=== PATIENT | male | born 1970 | race Caucasian/White ===

== ENCOUNTER 2016-10-19 11:09 | Inpatient (IN) | payer OTHER ==
[~2016-10-19] VITALS: Ht 175.3 cm; Wt 70.9 kg
[~2016-10-19 11:09] MED LIST: ACID CONTROL150 MG PO; AMBIEN10 MG PO; AMLODIPINE BESYL5 MG PO; ANTIVERT25 MG PO; APRESOLIN50 MG PO; APRESOLINE10 MG PO; AQUAPHOR OINTM105 GM TP; ASPIRIN EC325 MG PO; ASPIRIN325 MG PO; BUMETANIDE1 MG PO; CATAPRES0.1 MG PO; CHOLESTYRAMINE P4 GM PO; CLONIDINE HCL0.2 MG PO; COMBIVENT200 INHALA; COMBIVENT200 INHALA IH; COZAAR50 MG PO; Chronulac,Cephulac,E PO; DIGITEK125 MC1 PO; EPOGEN,PRO2000 UNITS IV; FLAGYL500 MG PO; FLORASTOR250 MG PO; FULL SPECTRUM0.8 MG PO; FUROSEMIDE20 MG PO; FUROSEMIDE80 MG; FUROSEMIDE80 MG PO; GABAPENTIN300 MG PO; GLYBURIDE5 MG PO; HYDRALAZINE HCL25 MG PO; IMDUR30 MG PO; IMDUR60 MG PO; KEFLEX500 MG PO; LANOXIN,DIGI0.125 MG PO; LANTUS 10100 UNITS/; LANTUS 3 M100 UNITS/ SC; LANTUS100 UNIT/1 SQ; LIDODERM 5% P1 PATCH TD; LIDOPRIL 2.5%-1 EACH TP; LITE COAT ASPI325 M1 PO; LOPRESSOR25 MG PO; LOPRESSOR50 MG PO; LOSARTAN POTASS50 MG PO; LYRICA25 MG PO; LYRICA75 MG PO; MAGOX 400400 MG PO; MECLIZINE HCL25 MG PO; METOPROLOL TART50 MG PO; NEPHRO-VITE,1 TABLET PO; NOVOLOG PE100 UNITS/ SC; NOVOLOG100 UNIT/2 SQ; OXYCODONE HCL10 MG PO; OXYCODONE HCL15 MG PO; OxyCODONE PO; PERCOCET 5/31 TABLET PO; PRAVACHOL40 MG PO; PROVENTIL,2.5 MG/3 M IH; RANITIDINE HCL150 MG PO; RENVELA800 MG PO; ROXICODONE15 MG PO; SANTYL30 GM TP; SENSIPAR30 MG PO; SENSIPAR60 MG PO; VANCOCIN 250 M250 MG PO; VANCOCIN HCL125 MG PO; VENTOLIN HFA18 GM; VENTOLIN HFA18 GM IH; VITAMIN D5000 INTUN; VITAMIN D5000 INTUN PO; VITAMIN D5000 UNIT PO; Vitamin D, Drisdol PO; ZANTAC150 M1 PO; ZANTAC150 MG; ZANTAC150 MG PO; ZAROXOLYN,DIULO5 MG PO; ZESTRIL,PRINIVI10 MG PO; ZESTRIL,PRINIVI40 MG PO; ZESTRIL40 M1 PO; Zocor PO; [UNRECOGNIZED DRUG - OTHER]; [UNRECOGNIZED DRUG - OTHER] PO
[2016-10-19 12:18] LABS: INTERNAL CONTROL VALID? YES
[2016-10-19 12:25] LABS: HEMATOCRIT 26.3 % (38.0-50.0); MCH 26.8 PG (29.0-34.0); MCHC 31.6 G/DL (30.0-36.0); MCV 84.8 FL (86-99); MEAN PLAT.VOLUME 10.8 uM^3 (9.0-12.4); PLATELET COUNT 176 K/uL (156-360); RBC DIS.WIDTH-CV 17.5 % (11.8-14.6); RBC DIS.WIDTH-SD 53.2 % (39-53); WHITE BLOOD COUNT 15.8 K/uL (4.1-10.2)
[2016-10-19 12:33] LABS: CHLORIDE 93 mEq/L (99-109); POTASSIUM 3.6 mEq/L (3.7-5.4); SODIUM 130 mEq/L (136-147)
[2016-10-19 12:35] LABS: GLUCOSE 113 mg/dL (70-99)
[2016-10-19 12:36] LABS: ANION GAP 17 MEQ/L (2-14)
[2016-10-19 12:37] LABS: TOTAL BILIRUBIN 1.1 mg/dL (0.0-1.0)
[2016-10-19 12:38] LABS: ALKALINE PHOSPHATASE 102 IU/L (3-129)
[2016-10-19 12:39] LABS: GFR ESTIMATE (CALCULATED) 6 mL/min/
[2016-10-19 12:40] LABS: UREA NITROGEN (BUN) 46 mg/dL (9-23)
[2016-10-19 12:41] LABS: C DIFF TOXIN POSITIVE (NEGATIVE)
[2016-10-19 12:42] LABS: LIPASE 9 U/L (1.0-51.0)
[2016-10-19 12:58] LABS: PROBE CHECK PASS
[2016-10-19 14:43] LABS: EOSINOPHIL (%) 0.1 % (0-5); IMMATURE GRANULOCYTE (%) 0.3 % (0.0-0.7); INSTRUMENT ABS NEUTROPHIL CT 13.4 K/uL; MONOCYTE (%) 7.7 % (3-12); MONOCYTE COUNT 1.2 K/uL (0-0.8); NEUTROPHIL (%) 85.1 % (45-76); NEUTROPHIL COUNT 13.4 K/uL (1.8-6.4)
[2016-10-19] MEDS ORDERED: RENVELA800 MG PO (15:36)
[2016-10-19] MEDS ORDERED: HYDROPHOR OINT454 GM TP (15:39)
[2016-10-19] MEDS ORDERED: DURAGESIC50 MCG TD (15:40)
[2016-10-19] MEDS ORDERED: COMBIVENT RESPIM4 GM IH (15:40)
[2016-10-19] MEDS ORDERED: PROAIR HFA8.5 GM IH (15:41)
[2016-10-19] MEDS ORDERED: FLOVENT 11120 INHALA IH (15:42)
[2016-10-19] MEDS ORDERED: EPOGEN,PRO2000 UNITS IV (15:53)
[2016-10-19 21:56] VITALS: BP 117/57
[2016-10-19 22:32] LABS: ANION GAP 17 MEQ/L (2-14); CHLORIDE 91 MEQ/L (99-109); MAGNESIUM 1.5 mg/dl (1.3-2.7); POTASSIUM 3.7 MEQ/L (3.7-5.4); SAMPLE HEMOLYSIS CHECK 0; SAMPLE ICTERIC CHECK 0; SAMPLE LIPEMIA CHECK 0; SODIUM 130 MEQ/L (136-147)
[2016-10-19 22:38] LABS: GFR ESTIMATE (CALCULATED) 6 mL/min/; GLUCOSE 110 mg/dL (70-99); UREA NITROGEN (BUN) 49 mg/dL (9-23)
[2016-10-20 04:01] VITALS: BP 133/71
[2016-10-20 07:05] LABS: HEMATOCRIT 24.4 % (38.0-50.0); MCH 26.8 PG (29.0-34.0); MCHC 31.6 G/DL (30.0-36.0); MEAN PLAT.VOLUME 10.9 uM^3 (9.0-12.4); PLATELET COUNT 198 K/uL (156-360); RBC DIS.WIDTH-CV 17.4 % (11.8-14.6); RBC DIS.WIDTH-SD 53.7 % (39-53); RED BLOOD COUNT 2.87 M/uL (4.00-5.50); WHITE BLOOD COUNT 17.2 K/uL (4.1-10.2)
[2016-10-20 07:22] VITALS: BP 137/71
[2016-10-20 07:27] LABS: ANION GAP 18 MEQ/L (2-14); CHLORIDE 93 MEQ/L (99-109); GFR ESTIMATE (CALCULATED) 6 mL/min/; GLUCOSE 105 mg/dL (70-99); POTASSIUM 4.1 MEQ/L (3.7-5.4); SAMPLE HEMOLYSIS CHECK 0; SAMPLE ICTERIC CHECK 0; SAMPLE LIPEMIA CHECK 0; SODIUM 133 MEQ/L (136-147); UREA NITROGEN (BUN) 52 mg/dL (9-23)
[2016-10-20 07:46] LABS: ABS NEUTROPHIL COUNT 15.6; BAND NEUTROPHILS 12.1 % (0-8.0); EOSINOPHIL ABS CT 0; INSTRUMENT ABS NEUTROPHIL CT 14.8 K/uL; LYMPHOCYTES 6.9 % (15.0-45.0); PLAT.SUFFICIENCY ADEQUATE; SEG.NEUTROPHILS 78.4 % (46.0-76.0)
[2016-10-20 11:05] VITALS: BP 127/66
[2016-10-20 15:13] VITALS: BP 139/70
[2016-10-20 19:16] VITALS: BP 142/66
[2016-10-20 23:00] VITALS: BP 144/62
[2016-10-21 07:47] VITALS: BP 130/60
[2016-10-21 07:55] LABS: POINT-OF-CARE METER ID UU14188625
[2016-10-21 08:51] LABS: INTACT PARATHYROID HORMONE 78 pg/mL (10-69)
[2016-10-21 11:25] VITALS: BP 118/60
[2016-10-21 15:28] VITALS: BP 140/62
[2016-10-22 00:03] VITALS: BP 131/61
[2016-10-22 04:49] LABS: HEMATOCRIT 26.2 % (38.0-50.0); MCH 26.7 PG (29.0-34.0); MCHC 30.9 G/DL (30.0-36.0); MCV 86.5 FL (86-99); MEAN PLAT.VOLUME 10.8 uM^3 (9.0-12.4); PLATELET COUNT 175 K/uL (156-360); RBC DIS.WIDTH-CV 17.7 % (11.8-14.6); RBC DIS.WIDTH-SD 55.6 % (39-53); RED BLOOD COUNT 3.03 M/uL (4.00-5.50); WHITE BLOOD COUNT 10.7 K/uL (4.1-10.2)
[2016-10-22 04:53] LABS: CHLORIDE 100 mEq/L (99-109); POTASSIUM 3.6 mEq/L (3.7-5.4)
[2016-10-22 04:55] LABS: GLUCOSE 103 mg/dL (70-99)
[2016-10-22 04:56] LABS: ANION GAP 18 MEQ/L (2-14)
[2016-10-22 04:58] LABS: SODIUM 141 mEq/L (136-147)
[2016-10-22 04:59] LABS: GFR ESTIMATE (CALCULATED) 8 mL/min/
[2016-10-22 05:00] LABS: UREA NITROGEN (BUN) 34 mg/dL (9-23)
[2016-10-22 17:17] VITALS: BP 130/61
[2016-10-22 17:21] LABS: POINT-OF-CARE METER ID UU14174225
[2016-10-23] VITALS: BP 127/60
[2016-10-23 07:48] LABS: EOSINOPHIL (%) 1.1 % (0-5); EOSINOPHIL COUNT 0.1 K/uL (0-0.3); HEMATOCRIT 26.3 % (38.0-50.0); IMMATURE GRANULOCYTE (%) 1.4 % (0.0-0.7); IMMATURE GRANULOCYTE COUNT 0.1 K/uL; INSTRUMENT ABS NEUTROPHIL CT 5.6 K/uL; LYMPHOCYTE COUNT 0.8 K/uL (1.0-2.8); MCH 26.1 PG (29.0-34.0); MCV 86.8 FL (86-99); MEAN PLAT.VOLUME 10.7 uM^3 (9.0-12.4); MONOCYTE (%) 8.8 % (3-12); MONOCYTE COUNT 0.6 K/uL (0-0.8); NEUTROPHIL (%) 76.8 % (45-76); NEUTROPHIL COUNT 5.6 K/uL (1.8-6.4); PLATELET COUNT 162 K/uL (156-360); RBC DIS.WIDTH-CV 17.8 % (11.8-14.6); RBC DIS.WIDTH-SD 55.1 % (39-53); RED BLOOD COUNT 3.03 M/uL (4.00-5.50)
[2016-10-23 07:51] LABS: WHITE BLOOD COUNT 7.2 K/uL (4.1-10.2)
[2016-10-23 08:01] VITALS: BP 120/58
[2016-10-23 08:02] LABS: ANION GAP 16 MEQ/L (2-14); CHLORIDE 97 MEQ/L (99-109); GLUCOSE 112 mg/dL (70-99); POTASSIUM 3.1 MEQ/L (3.7-5.4); SAMPLE HEMOLYSIS CHECK 0; SAMPLE ICTERIC CHECK 0; SAMPLE LIPEMIA CHECK 0; SODIUM 141 MEQ/L (136-147); UREA NITROGEN (BUN) 18 mg/dL (9-23)
[2016-10-23 08:03] LABS: GFR ESTIMATE (CALCULATED) 12 mL/min/
[2016-10-23 14:48] VITALS: BP 118/64
[2016-10-23 16:27] LABS: INTER. NORMALIZED RATIO 1.6; PROTHROMBIN TIME 16.8 (9.2-11.2); PTT 48.4 (25-32)
[2016-10-23 23:12] VITALS: BP 117/63
[2016-10-24 08:00] VITALS: BP 110/70
[2016-10-24 08:58] LABS: HEMATOCRIT 25.2 % (38.0-50.0); MCH 26.6 PG (29.0-34.0); MCHC 30.6 G/DL (30.0-36.0); MCV 87.2 FL (86-99); MEAN PLAT.VOLUME 10.7 uM^3 (9.0-12.4); PLATELET COUNT 133 K/uL (156-360); RBC DIS.WIDTH-SD 54.5 % (39-53); RED BLOOD COUNT 2.89 M/uL (4.00-5.50); WHITE BLOOD COUNT 6.7 K/uL (4.1-10.2)
[2016-10-24 09:17] LABS: ANION GAP 15 MEQ/L (2-14); CHLORIDE 96 MEQ/L (99-109); DIRECT BILIRUBIN 0.5 mg/dL (0.0-0.3); POTASSIUM 2.9 MEQ/L (3.7-5.4); SAMPLE HEMOLYSIS CHECK 0; SAMPLE ICTERIC CHECK 0; SAMPLE LIPEMIA CHECK 0; SODIUM 142 MEQ/L (136-147); TOTAL BILIRUBIN 1.1 MG/DL (0.0-1.0)
[2016-10-24 09:24] LABS: ALKALINE PHOSPHATASE 83 IU/L (3-129); GFR ESTIMATE (CALCULATED) 8 mL/min/; GLUCOSE 129 mg/dL (70-99); UREA NITROGEN (BUN) 22 mg/dL (9-23)
[2016-10-24 15:22] VITALS: BP 120/72
[2016-10-24 15:45] LABS: BODY FLUID PROTEIN 4.6 G/DL
[2016-10-24 23:06] VITALS: BP 140/63
[2016-10-25 07:34] LABS: ANION GAP 11 MEQ/L (2-14); CHLORIDE 100 MEQ/L (99-109); GFR ESTIMATE (CALCULATED) 13 mL/min/; GLUCOSE 109 mg/dL (70-99); SAMPLE HEMOLYSIS CHECK 0; SAMPLE ICTERIC CHECK 0; SAMPLE LIPEMIA CHECK 0; SODIUM 143 MEQ/L (136-147); UREA NITROGEN (BUN) 13 mg/dL (9-23)
[2016-10-25 07:42] VITALS: BP 141/65
[2016-10-25 17:26] VITALS: BP 134/67
[2016-10-25 23:55] VITALS: BP 121/70
[2016-10-26 07:26] LABS: ANION GAP 16 MEQ/L (2-14); CHLORIDE 93 MEQ/L (99-109); GFR ESTIMATE (CALCULATED) 9 mL/min/; GLUCOSE 135 mg/dL (70-99); POTASSIUM 3.2 MEQ/L (3.7-5.4); SAMPLE HEMOLYSIS CHECK 0; SAMPLE ICTERIC CHECK 0; SAMPLE LIPEMIA CHECK 0; SODIUM 139 MEQ/L (136-147); UREA NITROGEN (BUN) 24 mg/dL (9-23)
[2016-10-26 07:47] VITALS: BP 132/72
[2016-10-26 16:20] VITALS: BP 136/74
[2016-10-27 00:04] VITALS: BP 110/64
[2016-10-27 04:39] LABS: HEMATOCRIT 37.8 % (38.0-50.0); MCHC 30.4 G/DL (30.0-36.0); MCV 88.7 FL (86-99); MEAN PLAT.VOLUME 11.5 uM^3 (9.0-12.4); PLATELET COUNT 131 K/uL (156-360); RBC DIS.WIDTH-CV 20.6 % (11.8-14.6); RBC DIS.WIDTH-SD 57.7 % (39-53)
[2016-10-27 04:41] LABS: RED BLOOD COUNT 4.26 M/uL (4.00-5.50)
[2016-10-27 04:48] LABS: CHLORIDE 94 mEq/L (99-109); SODIUM 141 mEq/L (136-147)
[2016-10-27 04:51] LABS: ANION GAP 20 MEQ/L (2-14)
[2016-10-27 04:55] LABS: UREA NITROGEN (BUN) 36 mg/dL (9-23)
[2016-10-27 05:04] LABS: GFR ESTIMATE (CALCULATED) 7 mL/min/; GLUCOSE 228 mg/dL (70-99); POTASSIUM 4.6 mEq/L (3.7-5.4)
[2016-10-27 08:14] VITALS: BP 126/84
[2016-10-27 11:07] LABS: HEMATOCRIT 35.5 % (38.0-50.0); MCH 26.6 PG (29.0-34.0); MCHC 29.6 G/DL (30.0-36.0); MCV 90.1 FL (86-99); MEAN PLAT.VOLUME 11.7 uM^3 (9.0-12.4); PLATELET COUNT 133 K/uL (156-360); RBC DIS.WIDTH-CV 20.5 % (11.8-14.6); RBC DIS.WIDTH-SD 59.4 % (39-53); RED BLOOD COUNT 3.94 M/uL (4.00-5.50)
[2016-10-27 12:09] LABS: EOSINOPHIL (%) 0.2 % (0-5); HEMATOLOGY COMMENT 1 SMEAR COMPATIBLE; IMMATURE GRANULOCYTE COUNT 0.1 K/uL; LYMPHOCYTE COUNT 1.1 K/uL (1.0-2.8); MONOCYTE (%) 6.1 % (3-12); MONOCYTE COUNT 0.7 K/uL (0-0.8); NEUTROPHIL (%) 83.1 % (45-76)
[2016-10-27 15:08] VITALS: BP 120/64
[2016-10-27 23:10] VITALS: BP 127/73
[2016-10-28 07:30] VITALS: BP 100/63
[2016-10-28 08:02] LABS: ANION GAP 13 MEQ/L (2-14); CHLORIDE 101 MEQ/L (99-109); GFR ESTIMATE (CALCULATED) 11 mL/min/; POTASSIUM 4.4 MEQ/L (3.7-5.4); SAMPLE HEMOLYSIS CHECK 0; SAMPLE ICTERIC CHECK 0; SAMPLE LIPEMIA CHECK 0; SODIUM 140 MEQ/L (136-147); UREA NITROGEN (BUN) 31 mg/dL (9-23)
[2016-10-28 08:04] LABS: GLUCOSE 120 mg/dL (70-99)
[2016-10-28 16:21] VITALS: BP 106/58
[2016-10-28 16:26] LABS: HEMATOCRIT 29.5 % (38.0-50.0); MCV 90.8 FL (86-99)
[2016-10-28 23:37] VITALS: BP 110/51
[2016-10-29 05:23] LABS: HEMATOCRIT 29.3 % (38.0-50.0); MCH 26.8 PG (29.0-34.0); MCHC 29.7 G/DL (30.0-36.0); MCV 90.2 FL (86-99); MEAN PLAT.VOLUME 11.5 uM^3 (9.0-12.4); PLATELET COUNT 114 K/uL (156-360); RBC DIS.WIDTH-CV 21.6 % (11.8-14.6); RBC DIS.WIDTH-SD 61.2 % (39-53); RED BLOOD COUNT 3.25 M/uL (4.00-5.50); WHITE BLOOD COUNT 8.7 K/uL (4.1-10.2)
[2016-10-29 06:02] LABS: ANION GAP 13 MEQ/L (2-14); CHLORIDE 103 MEQ/L (99-109); GFR ESTIMATE (CALCULATED) 9 mL/min/; GLUCOSE 108 mg/dL (70-99); POTASSIUM 4.4 MEQ/L (3.7-5.4); SAMPLE HEMOLYSIS CHECK 0; SAMPLE ICTERIC CHECK 0; SAMPLE LIPEMIA CHECK 0; SODIUM 143 MEQ/L (136-147); UREA NITROGEN (BUN) 46 mg/dL (9-23)
[2016-10-29 06:34] LABS: ABS NEUTROPHIL COUNT 7.1; ANISOCYTOSIS 1+; BAND NEUTROPHILS 2.6 % (0-8.0); EOSINOPHIL ABS CT 0; INSTRUMENT ABS NEUTROPHIL CT 6.5 K/uL; LYMPHOCYTES 15.9 % (15.0-45.0); MACROCYTES 1+; METAMYELOCYTES 0.9 %; MYELOCYTES 0.9 %; NUCLEATED RBC'S 0.9; PLAT.SUFFICIENCY DECREASED; POLYCHROMASIA 2+; SEG.NEUTROPHILS 78.8 % (46.0-76.0)
[2016-10-30 03:12] VITALS: BP 94/50
[2016-10-30 07:32] VITALS: BP 106/64
[2016-10-30 12:08] LABS: HEMATOCRIT 28.3 % (38.0-50.0); MCH 26.8 PG (29.0-34.0); MCHC 29.3 G/DL (30.0-36.0); MCV 91.3 FL (86-99); MEAN PLAT.VOLUME 11.6 uM^3 (9.0-12.4); PLATELET COUNT 101 K/uL (156-360); RBC DIS.WIDTH-CV 22.5 % (11.8-14.6); RBC DIS.WIDTH-SD 68.6 % (39-53); WHITE BLOOD COUNT 8.6 K/uL (4.1-10.2)
[2016-10-30 12:39] LABS: ANION GAP 13 MEQ/L (2-14); CHLORIDE 100 MEQ/L (99-109); GFR ESTIMATE (CALCULATED) 11 mL/min/; GLUCOSE 161 mg/dL (70-99); POTASSIUM 4.1 MEQ/L (3.7-5.4); SAMPLE HEMOLYSIS CHECK 0; SAMPLE ICTERIC CHECK 0; SAMPLE LIPEMIA CHECK 0; SODIUM 140 MEQ/L (136-147); UREA NITROGEN (BUN) 32 mg/dL (9-23)
[2016-10-31 10:04] LABS: HEMATOCRIT 29.7 % (38.0-50.0); MCH 26.9 PG (29.0-34.0); MCHC 29.3 G/DL (30.0-36.0); MEAN PLAT.VOLUME 11.4 uM^3 (9.0-12.4); PLATELET COUNT 102 K/uL (156-360); RBC DIS.WIDTH-CV 22.5 % (11.8-14.6); RBC DIS.WIDTH-SD 71.3 % (39-53); RED BLOOD COUNT 3.23 M/uL (4.00-5.50); WHITE BLOOD COUNT 8.7 K/uL (4.1-10.2)
[2016-10-31 10:56] LABS: ALKALINE PHOSPHATASE 69 IU/L (3-129); ANION GAP 14 MEQ/L (2-14); CHLORIDE 101 MEQ/L (99-109); DIRECT BILIRUBIN 0.7 mg/dL (0.0-0.3); GFR ESTIMATE (CALCULATED) 9 mL/min/; GLUCOSE 140 mg/dL (70-99); POTASSIUM 4.6 MEQ/L (3.7-5.4); SAMPLE HEMOLYSIS CHECK 0; SAMPLE ICTERIC CHECK 0; SAMPLE LIPEMIA CHECK 0; SODIUM 141 MEQ/L (136-147); TOTAL BILIRUBIN 1.3 MG/DL (0.0-1.0); UREA NITROGEN (BUN) 43 mg/dL (9-23)
[2016-10-31 17:16] VITALS: BP 134/74
[2016-10-31 21:13] VITALS: BP 120/64
[2016-11-01] VITALS: BP 166/58
[2016-11-01 07:26] VITALS: BP 132/64
[2016-11-01 15:26] VITALS: BP 128/64
[2016-11-01 23:35] VITALS: BP 102/70
[2016-11-02 07:25] VITALS: BP 110/62
[2016-11-02 15:48] VITALS: BP 106/62
[2016-11-03 08:14] VITALS: BP 154/78
[2016-11-03 09:55] LABS: ALKALINE PHOSPHATASE 88 IU/L (3-129); ANION GAP 18 MEQ/L (2-14); CHLORIDE 93 MEQ/L (99-109); GLUCOSE 140 mg/dL (70-99); SAMPLE HEMOLYSIS CHECK 0; SAMPLE ICTERIC CHECK 0; SAMPLE LIPEMIA CHECK 0; SODIUM 138 MEQ/L (136-147)
[2016-11-03 09:58] LABS: GFR ESTIMATE (CALCULATED) 6 mL/min/; TOTAL BILIRUBIN 2.5 MG/DL (0.0-1.0); UREA NITROGEN (BUN) 65 mg/dL (9-23)
[2016-11-03 10:13] LABS: HEMATOCRIT 26.5 % (38.0-50.0); MCHC 29.8 G/DL (30.0-36.0); MCV 90.4 FL (86-99); MEAN PLAT.VOLUME 12.5 uM^3 (9.0-12.4); RBC DIS.WIDTH-CV 22.6 % (11.8-14.6); RBC DIS.WIDTH-SD 71.8 % (39-53); RED BLOOD COUNT 2.93 M/uL (4.00-5.50)
[2016-11-03 10:43] LABS: PLATELET COUNT 142 K/uL (156-360); WHITE BLOOD COUNT 13.6 K/uL (4.1-10.2)
[2016-11-04 00:47] VITALS: BP 112/68
[2016-11-04 08:13] VITALS: BP 100/60
[2016-11-04 15:08] VITALS: BP 92/62
[2016-11-05] VITALS: BP 92/62
[2016-11-05 09:09] LABS: HEMATOCRIT 25.4 % (38.0-50.0); MCHC 29.5 G/DL (30.0-36.0); MCV 91.4 FL (86-99); MEAN PLAT.VOLUME 12.8 uM^3 (9.0-12.4); PLATELET COUNT 170 K/uL (156-360); RBC DIS.WIDTH-CV 23.2 % (11.8-14.6); RBC DIS.WIDTH-SD 73.8 % (39-53); RED BLOOD COUNT 2.78 M/uL (4.00-5.50)
[2016-11-05 09:20] LABS: ANION GAP 18 MEQ/L (2-14); CHLORIDE 99 MEQ/L (99-109); POTASSIUM 4.5 MEQ/L (3.7-5.4); SAMPLE HEMOLYSIS CHECK 0; SAMPLE ICTERIC CHECK 0; SAMPLE LIPEMIA CHECK 0; SODIUM 140 MEQ/L (136-147)
[2016-11-05 09:27] LABS: GFR ESTIMATE (CALCULATED) 8 mL/min/; GLUCOSE 130 mg/dL (70-99); UREA NITROGEN (BUN) 54 mg/dL (9-23)
[2016-11-05 12:44] LABS: IRON 62 MCG/DL (35-150)
[2016-11-05 13:48] VITALS: BP 120/60
[2016-11-05 16:00] VITALS: BP 124/72
[2016-11-05 19:50] VITALS: BP 121/59
[2016-11-05 23:28] VITALS: BP 130/62
[2016-11-06 03:06] VITALS: BP 128/60
[2016-11-06 08:55] VITALS: BP 93/51
[2016-11-06 13:11] VITALS: BP 89/62
[2016-11-06 16:25] VITALS: BP 97/50
[2016-11-06 22:38] VITALS: BP 62/30
[2016-11-06 22:52] VITALS: BP 84/48
[2016-11-07] VITALS (21 sets, daily range): BP systolic 0–136; BP diastolic 0–71
[2016-11-07 02:02] LABS: HEMATOCRIT 25.3 % (38.0-50.0); MCH 27.8 PG (29.0-34.0); MCHC 30.4 G/DL (30.0-36.0); MCV 91.3 FL (86-99); MEAN PLAT.VOLUME 12.6 uM^3 (9.0-12.4); PLATELET COUNT 181 K/uL (156-360); RBC DIS.WIDTH-CV 23.5 % (11.8-14.6); RBC DIS.WIDTH-SD 73.2 % (39-53); RED BLOOD COUNT 2.77 M/uL (4.00-5.50); WHITE BLOOD COUNT 14.7 K/uL (4.1-10.2)
[2016-11-07 02:18] LABS: CHLORIDE 97 mEq/L (99-109); POTASSIUM 3.6 mEq/L (3.7-5.4); SODIUM 140 mEq/L (136-147)
[2016-11-07 02:21] LABS: METH RESISTANT S AUREUS PCR POSITIVE (NEGATIVE)
[2016-11-07 02:21] LABS: ANION GAP 19 MEQ/L (2-14); GLUCOSE 259 mg/dL (70-99)
[2016-11-07 02:24] LABS: GFR ESTIMATE (CALCULATED) 9 mL/min/
[2016-11-07 02:25] LABS: UREA NITROGEN (BUN) 49 mg/dL (9-23)
[2016-11-07 02:27] LABS: PROBE CHECK PASS
[2016-11-07 05:56] LABS: EOSINOPHIL (%) 0.6 % (0-5); EOSINOPHIL COUNT 0.1 K/uL (0-0.3); HEMATOCRIT 23.8 % (38.0-50.0); IMMATURE GRANULOCYTE (%) 0.6 % (0.0-0.7); IMMATURE GRANULOCYTE COUNT 0.1 K/uL; INSTRUMENT ABS NEUTROPHIL CT 12.3 K/uL; LYMPHOCYTE COUNT 1.2 K/uL (1.0-2.8); MCH 27.6 PG (29.0-34.0); MCHC 30.3 G/DL (30.0-36.0); MCV 91.2 FL (86-99); MEAN PLAT.VOLUME 12.4 uM^3 (9.0-12.4); MONOCYTE (%) 4.7 % (3-12); MONOCYTE COUNT 0.7 K/uL (0-0.8); NEUTROPHIL (%) 85.9 % (45-76); NEUTROPHIL COUNT 12.3 K/uL (1.8-6.4); PLATELET COUNT 173 K/uL (156-360); RBC DIS.WIDTH-CV 23.5 % (11.8-14.6); RBC DIS.WIDTH-SD 72.7 % (39-53); RED BLOOD COUNT 2.61 M/uL (4.00-5.50); WHITE BLOOD COUNT 14.3 K/uL (4.1-10.2)
[2016-11-07 06:49] LABS: ALKALINE PHOSPHATASE 98 IU/L (3-129); ANION GAP 18 MEQ/L (2-14); CHLORIDE 96 MEQ/L (99-109); GFR ESTIMATE (CALCULATED) 9 mL/min/; GLUCOSE 161 mg/dL (70-99); MAGNESIUM 2.1 mg/dl (1.3-2.7); POTASSIUM 3.6 MEQ/L (3.7-5.4); SAMPLE HEMOLYSIS CHECK 0; SAMPLE ICTERIC CHECK 1; SAMPLE LIPEMIA CHECK 0; SODIUM 139 MEQ/L (136-147); TOTAL BILIRUBIN 3.3 MG/DL (0.0-1.0); UREA NITROGEN (BUN) 49 mg/dL (9-23)
[2016-11-08 04:24] LABS: HEMATOCRIT 24.4 % (38.0-50.0); MCH 28.1 PG (29.0-34.0); MCHC 31.1 G/DL (30.0-36.0); MCV 90.4 FL (86-99); MEAN PLAT.VOLUME 11.7 uM^3 (9.0-12.4); PLATELET COUNT 174 K/uL (156-360); RBC DIS.WIDTH-CV 23.6 % (11.8-14.6); RBC DIS.WIDTH-SD 70.1 % (39-53); WHITE BLOOD COUNT 11.6 K/uL (4.1-10.2)
[2016-11-08 04:41] LABS: INTER. NORMALIZED RATIO 1.6; PROTHROMBIN TIME 16.8 (9.2-11.2); PTT 51.3 (25-32)
[2016-11-08 04:43] LABS: CARBON DIOXIDE (BICARBONATE) 28.4 MEQ/L (20-31)
[2016-11-08 04:48] LABS: CHLORIDE 94 mEq/L (99-109); POTASSIUM 3.7 mEq/L (3.7-5.4); SODIUM 134 mEq/L (136-147)
[2016-11-08 04:49] LABS: MAGNESIUM 1.8 mg/dL (1.3-2.7)
[2016-11-08 04:50] LABS: GLUCOSE 125 mg/dL (70-99)
[2016-11-08 04:52] LABS: ANION GAP 16 MEQ/L (2-14)
[2016-11-08 04:54] LABS: GFR ESTIMATE (CALCULATED) 8 mL/min/
[2016-11-08 04:55] LABS: UREA NITROGEN (BUN) 55 mg/dL (9-23)
[2016-11-08 09:00] VITALS: BP 87/40
[2016-11-08 11:00] VITALS: BP 127/56
[2016-11-08 12:00] VITALS: BP 141/61
[2016-11-08 13:05] LABS: TOTAL BILIRUBIN 2.7 mg/dL (0.0-1.0)
[2016-11-08 13:06] LABS: ALKALINE PHOSPHATASE 103 IU/L (3-129)
[2016-11-08 13:09] LABS: DIRECT BILIRUBIN 2.1 mg/dL (0.0-0.3)
[2016-11-08 22:30] VITALS: BP 133/46
[2016-11-08 23:00] VITALS: BP 135/41
[2016-11-09] VITALS (9 sets, daily range): BP systolic 91–130; BP diastolic 34–81
[2016-11-09 05:57] LABS: BASOPHIL COUNT 0.1 K/uL (0-0.1); EOSINOPHIL (%) 3.7 % (0-5); EOSINOPHIL COUNT 0.4 K/uL (0-0.3); HEMATOCRIT 22.8 % (38.0-50.0); IMMATURE GRANULOCYTE (%) 0.8 % (0.0-0.7); IMMATURE GRANULOCYTE COUNT 0.1 K/uL; INSTRUMENT ABS NEUTROPHIL CT 8.1 K/uL; LYMPHOCYTE COUNT 1.2 K/uL (1.0-2.8); MCH 28.2 PG (29.0-34.0); MCHC 30.7 G/DL (30.0-36.0); MCV 91.9 FL (86-99); MEAN PLAT.VOLUME 11.7 uM^3 (9.0-12.4); MONOCYTE (%) 5.6 % (3-12); MONOCYTE COUNT 0.6 K/uL (0-0.8); NEUTROPHIL (%) 77.9 % (45-76); NEUTROPHIL COUNT 8.1 K/uL (1.8-6.4); PLATELET COUNT 148 K/uL (156-360); RBC DIS.WIDTH-SD 73.6 % (39-53); RED BLOOD COUNT 2.48 M/uL (4.00-5.50); WHITE BLOOD COUNT 10.4 K/uL (4.1-10.2)
[2016-11-09 06:21] LABS: ANION GAP 14 MEQ/L (2-14); CHLORIDE 97 MEQ/L (99-109); GFR ESTIMATE (CALCULATED) 7 mL/min/; GLUCOSE 85 mg/dL (70-99); MAGNESIUM 2.3 mg/dl (1.3-2.7); SAMPLE HEMOLYSIS CHECK 0; SAMPLE ICTERIC CHECK 0; SAMPLE LIPEMIA CHECK 0; SODIUM 134 MEQ/L (136-147); UREA NITROGEN (BUN) 53 mg/dL (9-23)
[2016-11-10] VITALS (17 sets, daily range): BP systolic 107–159; BP diastolic 33–64
[2016-11-10 06:18] LABS: ANION GAP 18 MEQ/L (2-14); CHLORIDE 96 MEQ/L (99-109); GFR ESTIMATE (CALCULATED) 6 mL/min/; GLUCOSE 78 mg/dL (70-99); MAGNESIUM 2.2 mg/dl (1.3-2.7); POTASSIUM 4.1 MEQ/L (3.7-5.4); SAMPLE HEMOLYSIS CHECK 0; SAMPLE ICTERIC CHECK 0; SAMPLE LIPEMIA CHECK 0; SODIUM 137 MEQ/L (136-147); UREA NITROGEN (BUN) 60 mg/dL (9-23)
[2016-11-10 06:20] LABS: BASOPHIL COUNT 0.1 K/uL (0-0.1); EOSINOPHIL (%) 2.1 % (0-5); EOSINOPHIL COUNT 0.2 K/uL (0-0.3); IMMATURE GRANULOCYTE (%) 0.7 % (0.0-0.7); IMMATURE GRANULOCYTE COUNT 0.1 K/uL; INSTRUMENT ABS NEUTROPHIL CT 9.1 K/uL; LYMPHOCYTE COUNT 1.1 K/uL (1.0-2.8); MCH 28.1 PG (29.0-34.0); MCV 93.6 FL (86-99); MEAN PLAT.VOLUME 11.1 uM^3 (9.0-12.4); MONOCYTE (%) 6.1 % (3-12); MONOCYTE COUNT 0.7 K/uL (0-0.8); NEUTROPHIL (%) 80.5 % (45-76); NEUTROPHIL COUNT 9.1 K/uL (1.8-6.4); PLATELET COUNT 130 K/uL (156-360); RBC DIS.WIDTH-CV 24.5 % (11.8-14.6); RBC DIS.WIDTH-SD 78.7 % (39-53); RED BLOOD COUNT 2.35 M/uL (4.00-5.50); WHITE BLOOD COUNT 11.3 K/uL (4.1-10.2)
[2016-11-10 15:52] LABS: HEMATOCRIT 24.6 % (38.0-50.0); MCV 92.1 FL (86-99)
[2016-11-11] VITALS (9 sets, daily range): BP systolic 125–148; BP diastolic 47–62
[2016-11-11 01:50] LABS: HEMATOCRIT 27.8 % (38.0-50.0); MCV 90.8 FL (86-99)
[2016-11-11 07:23] LABS: BASOPHIL COUNT 0.1 K/uL (0-0.1); EOSINOPHIL (%) 1.3 % (0-5); EOSINOPHIL COUNT 0.1 K/uL (0-0.3); HEMATOCRIT 25.2 % (38.0-50.0); IMMATURE GRANULOCYTE COUNT 0.1 K/uL; INSTRUMENT ABS NEUTROPHIL CT 8.7 K/uL; MCH 28.4 PG (29.0-34.0); MCV 91.6 FL (86-99); MEAN PLAT.VOLUME 10.8 uM^3 (9.0-12.4); MONOCYTE (%) 7.9 % (3-12); MONOCYTE COUNT 0.9 K/uL (0-0.8); NEUTROPHIL (%) 79.8 % (45-76); NEUTROPHIL COUNT 8.7 K/uL (1.8-6.4); PLATELET COUNT 111 K/uL (156-360); RBC DIS.WIDTH-CV 22.1 % (11.8-14.6); RBC DIS.WIDTH-SD 68.2 % (39-53); RED BLOOD COUNT 2.75 M/uL (4.00-5.50); WHITE BLOOD COUNT 10.9 K/uL (4.1-10.2)
[2016-11-11 08:07] LABS: ANION GAP 13 MEQ/L (2-14); CHLORIDE 100 MEQ/L (99-109); GLUCOSE 92 mg/dL (70-99); POTASSIUM 3.3 MEQ/L (3.7-5.4); SAMPLE HEMOLYSIS CHECK 0; SAMPLE ICTERIC CHECK 0; SAMPLE LIPEMIA CHECK 0; SODIUM 139 MEQ/L (136-147)
[2016-11-11 08:08] LABS: GFR ESTIMATE (CALCULATED) 11 mL/min/; MAGNESIUM 1.8 mg/dl (1.3-2.7); UREA NITROGEN (BUN) 27 mg/dL (9-23)
[2016-11-11 14:32] LABS: HEMATOCRIT 24.8 % (38.0-50.0); MCV 92.5 FL (86-99)
[2016-11-11 20:14] LABS: HEMATOCRIT 24.4 % (38.0-50.0); MCV 92.8 FL (86-99)
[2016-11-12] VITALS: BP 129/51
[2016-11-12 01:54] LABS: HEMATOCRIT 25.3 % (38.0-50.0)
[2016-11-12 04:00] VITALS: BP 164/33
[2016-11-12 08:00] VITALS: BP 152/58
[2016-11-12 08:55] LABS: BASOPHIL COUNT 0.1 K/uL (0-0.1); EOSINOPHIL (%) 1.4 % (0-5); EOSINOPHIL COUNT 0.2 K/uL (0-0.3); HEMATOCRIT 24.1 % (38.0-50.0); IMMATURE GRANULOCYTE (%) 1.1 % (0.0-0.7); IMMATURE GRANULOCYTE COUNT 0.1 K/uL; INSTRUMENT ABS NEUTROPHIL CT 9.9 K/uL; MCH 28.5 PG (29.0-34.0); MCHC 30.7 G/DL (30.0-36.0); MCV 92.7 FL (86-99); MEAN PLAT.VOLUME 10.8 uM^3 (9.0-12.4); MONOCYTE (%) 6.7 % (3-12); MONOCYTE COUNT 0.8 K/uL (0-0.8); NEUTROPHIL (%) 81.9 % (45-76); NEUTROPHIL COUNT 9.9 K/uL (1.8-6.4); PLATELET COUNT 135 K/uL (156-360); RBC DIS.WIDTH-CV 22.4 % (11.8-14.6); WHITE BLOOD COUNT 12.1 K/uL (4.1-10.2)
[2016-11-12 09:10] LABS: ANION GAP 14 MEQ/L (2-14); CHLORIDE 101 MEQ/L (99-109); GFR ESTIMATE (CALCULATED) 9 mL/min/; GLUCOSE 75 mg/dL (70-99); MAGNESIUM 1.7 mg/dl (1.3-2.7); POTASSIUM 3.4 MEQ/L (3.7-5.4); SAMPLE HEMOLYSIS CHECK 0; SAMPLE ICTERIC CHECK 0; SAMPLE LIPEMIA CHECK 0; SODIUM 138 MEQ/L (136-147); UREA NITROGEN (BUN) 38 mg/dL (9-23)
[2016-11-12 12:30] VITALS: BP 129/44
[2016-11-12 15:15] LABS: MCV 92.9 FL (86-99)
[2016-11-12 16:10] VITALS: BP 117/52
[2016-11-12 20:33] LABS: HEMATOCRIT 25.6 % (38.0-50.0); MCV 93.1 FL (86-99)
[2016-11-12 22:36] VITALS: BP 142/68
[2016-11-13 06:32] LABS: BASOPHIL COUNT 0.1 K/uL (0-0.1); EOSINOPHIL (%) 1.8 % (0-5); EOSINOPHIL COUNT 0.2 K/uL (0-0.3); HEMATOCRIT 24.4 % (38.0-50.0); IMMATURE GRANULOCYTE (%) 0.8 % (0.0-0.7); IMMATURE GRANULOCYTE COUNT 0.1 K/uL; LYMPHOCYTE COUNT 0.9 K/uL (1.0-2.8); MCH 28.3 PG (29.0-34.0); MCHC 29.9 G/DL (30.0-36.0); MCV 94.6 FL (86-99); MEAN PLAT.VOLUME 11.3 uM^3 (9.0-12.4); MONOCYTE (%) 5.4 % (3-12); MONOCYTE COUNT 0.7 K/uL (0-0.8); PLATELET COUNT 135 K/uL (156-360); RBC DIS.WIDTH-CV 22.5 % (11.8-14.6); RBC DIS.WIDTH-SD 75.9 % (39-53); RED BLOOD COUNT 2.58 M/uL (4.00-5.50); WHITE BLOOD COUNT 11.9 K/uL (4.1-10.2)
[2016-11-13 07:08] LABS: ANION GAP 12 MEQ/L (2-14); CHLORIDE 102 MEQ/L (99-109); GFR ESTIMATE (CALCULATED) 15 mL/min/; GLUCOSE 80 mg/dL (70-99); MAGNESIUM 1.7 mg/dl (1.3-2.7); POTASSIUM 3.6 MEQ/L (3.7-5.4); SAMPLE HEMOLYSIS CHECK 0; SAMPLE ICTERIC CHECK 0; SAMPLE LIPEMIA CHECK 0; SODIUM 141 MEQ/L (136-147); UREA NITROGEN (BUN) 21 mg/dL (9-23)
[2016-11-13 07:55] VITALS: BP 146/78
[2016-11-13 16:50] VITALS: BP 149/73
[2016-11-13 22:52] VITALS: BP 140/80
[2016-11-14 09:23] LABS: BASOPHIL COUNT 0.1 K/uL (0-0.1); EOSINOPHIL (%) 0.9 % (0-5); EOSINOPHIL COUNT 0.1 K/uL (0-0.3); HEMATOCRIT 24.6 % (38.0-50.0); IMMATURE GRANULOCYTE (%) 0.9 % (0.0-0.7); IMMATURE GRANULOCYTE COUNT 0.1 K/uL; INSTRUMENT ABS NEUTROPHIL CT 13.2 K/uL; LYMPHOCYTE COUNT 0.9 K/uL (1.0-2.8); MCH 28.6 PG (29.0-34.0); MCHC 30.5 G/DL (30.0-36.0); MCV 93.9 FL (86-99); MEAN PLAT.VOLUME 11.2 uM^3 (9.0-12.4); MONOCYTE (%) 4.4 % (3-12); MONOCYTE COUNT 0.7 K/uL (0-0.8); NEUTROPHIL (%) 87.7 % (45-76); NEUTROPHIL COUNT 13.2 K/uL (1.8-6.4); PLATELET COUNT 162 K/uL (156-360); RBC DIS.WIDTH-CV 22.4 % (11.8-14.6); RBC DIS.WIDTH-SD 74.3 % (39-53); RED BLOOD COUNT 2.62 M/uL (4.00-5.50); WHITE BLOOD COUNT 15.1 K/uL (4.1-10.2)
[2016-11-14 09:38] LABS: ANION GAP 14 MEQ/L (2-14); CHLORIDE 98 MEQ/L (99-109); MAGNESIUM 1.7 mg/dl (1.3-2.7); POTASSIUM 3.2 MEQ/L (3.7-5.4); SAMPLE HEMOLYSIS CHECK 0; SAMPLE ICTERIC CHECK 0; SAMPLE LIPEMIA CHECK 0; SODIUM 135 MEQ/L (136-147)
[2016-11-14 09:49] LABS: GFR ESTIMATE (CALCULATED) 11 mL/min/; GLUCOSE 96 mg/dL (70-99); UREA NITROGEN (BUN) 30 mg/dL (9-23)
[2016-11-14 16:39] VITALS: BP 130/63
[2016-11-14 22:29] VITALS: BP 142/68
[2016-11-15 06:43] LABS: BASOPHIL COUNT 0.1 K/uL (0-0.1); EOSINOPHIL (%) 1.6 % (0-5); EOSINOPHIL COUNT 0.2 K/uL (0-0.3); HEMATOCRIT 25.9 % (38.0-50.0); IMMATURE GRANULOCYTE (%) 0.9 % (0.0-0.7); IMMATURE GRANULOCYTE COUNT 0.1 K/uL; INSTRUMENT ABS NEUTROPHIL CT 12.4 K/uL; MCH 28.4 PG (29.0-34.0); MCHC 29.7 G/DL (30.0-36.0); MCV 95.6 FL (86-99); MEAN PLAT.VOLUME 11.3 uM^3 (9.0-12.4); MONOCYTE (%) 4.1 % (3-12); MONOCYTE COUNT 0.6 K/uL (0-0.8); NEUTROPHIL (%) 85.9 % (45-76); NEUTROPHIL COUNT 12.4 K/uL (1.8-6.4); PLATELET COUNT 172 K/uL (156-360); RBC DIS.WIDTH-CV 22.3 % (11.8-14.6); RBC DIS.WIDTH-SD 75.2 % (39-53); RED BLOOD COUNT 2.71 M/uL (4.00-5.50); WHITE BLOOD COUNT 14.4 K/uL (4.1-10.2)
[2016-11-15 07:11] LABS: ANION GAP 12 MEQ/L (2-14); CHLORIDE 98 MEQ/L (99-109); GLUCOSE 86 mg/dL (70-99); MAGNESIUM 1.7 mg/dl (1.3-2.7); POTASSIUM 3.1 MEQ/L (3.7-5.4); SAMPLE HEMOLYSIS CHECK 0; SAMPLE ICTERIC CHECK 0; SAMPLE LIPEMIA CHECK 0; SODIUM 138 MEQ/L (136-147); UREA NITROGEN (BUN) 15 mg/dL (9-23)
[2016-11-15 07:12] LABS: GFR ESTIMATE (CALCULATED) 18 mL/min/
[2016-11-15 15:54] VITALS: BP 137/68
[2016-11-15 22:51] VITALS: BP 144/70
[2016-11-16 06:35] LABS: BASOPHIL COUNT 0.1 K/uL (0-0.1); EOSINOPHIL (%) 1.4 % (0-5); EOSINOPHIL COUNT 0.2 K/uL (0-0.3); HEMATOCRIT 26.2 % (38.0-50.0); IMMATURE GRANULOCYTE (%) 0.8 % (0.0-0.7); IMMATURE GRANULOCYTE COUNT 0.1 K/uL; INSTRUMENT ABS NEUTROPHIL CT 11.3 K/uL; MCH 28.5 PG (29.0-34.0); MCHC 29.8 G/DL (30.0-36.0); MCV 95.6 FL (86-99); MEAN PLAT.VOLUME 10.9 uM^3 (9.0-12.4); MONOCYTE (%) 4.3 % (3-12); MONOCYTE COUNT 0.6 K/uL (0-0.8); NEUTROPHIL (%) 84.9 % (45-76); NEUTROPHIL COUNT 11.3 K/uL (1.8-6.4); PLATELET COUNT 185 K/uL (156-360); RED BLOOD COUNT 2.74 M/uL (4.00-5.50); WHITE BLOOD COUNT 13.3 K/uL (4.1-10.2)
[2016-11-16 07:03] VITALS: BP 120/52
[2016-11-16 07:07] LABS: ANION GAP 11 MEQ/L (2-14); CHLORIDE 98 MEQ/L (99-109); GFR ESTIMATE (CALCULATED) 13 mL/min/; GLUCOSE 80 mg/dL (70-99); MAGNESIUM 1.8 mg/dl (1.3-2.7); POTASSIUM 3.1 MEQ/L (3.7-5.4); SAMPLE HEMOLYSIS CHECK 0; SAMPLE ICTERIC CHECK 0; SAMPLE LIPEMIA CHECK 0; SODIUM 137 MEQ/L (136-147)
[2016-11-16 07:11] LABS: UREA NITROGEN (BUN) 23 mg/dL (9-23)
[2016-11-16 15:47] VITALS: BP 133/72
[2016-11-16 22:55] VITALS: BP 115/56
[2016-11-17 07:01] VITALS: BP 130/72
[2016-11-17 08:41] LABS: BASOPHIL COUNT 0.1 K/uL (0-0.1); EOSINOPHIL (%) 1.6 % (0-5); EOSINOPHIL COUNT 0.2 K/uL (0-0.3); IMMATURE GRANULOCYTE (%) 0.6 % (0.0-0.7); IMMATURE GRANULOCYTE COUNT 0.1 K/uL; INSTRUMENT ABS NEUTROPHIL CT 11.9 K/uL; LYMPHOCYTE COUNT 1.1 K/uL (1.0-2.8); MCH 28.9 PG (29.0-34.0); MCHC 30.4 G/DL (30.0-36.0); MCV 95.1 FL (86-99); MEAN PLAT.VOLUME 10.9 uM^3 (9.0-12.4); MONOCYTE (%) 5.4 % (3-12); MONOCYTE COUNT 0.8 K/uL (0-0.8); NEUTROPHIL (%) 84.2 % (45-76); NEUTROPHIL COUNT 11.9 K/uL (1.8-6.4); PLATELET COUNT 188 K/uL (156-360); RBC DIS.WIDTH-SD 74.5 % (39-53); RED BLOOD COUNT 2.63 M/uL (4.00-5.50); WHITE BLOOD COUNT 14.1 K/uL (4.1-10.2)
[2016-11-17 09:00] LABS: ANION GAP 13 MEQ/L (2-14); CHLORIDE 99 MEQ/L (99-109); MAGNESIUM 1.8 mg/dl (1.3-2.7); POTASSIUM 3.1 MEQ/L (3.7-5.4); SAMPLE HEMOLYSIS CHECK 0; SAMPLE ICTERIC CHECK 0; SAMPLE LIPEMIA CHECK 0; SODIUM 138 MEQ/L (136-147)
[2016-11-17 09:26] LABS: GFR ESTIMATE (CALCULATED) 10 mL/min/; GLUCOSE 80 mg/dL (70-99); UREA NITROGEN (BUN) 31 mg/dL (9-23)
[2016-11-17 15:00] VITALS: BP 119/60
[2016-11-18 00:10] VITALS: BP 135/69
[2016-11-18 07:10] VITALS: BP 134/68
[2016-11-18 10:03] LABS: BASOPHIL COUNT 0.1 K/uL (0-0.1); EOSINOPHIL (%) 0.9 % (0-5); EOSINOPHIL COUNT 0.1 K/uL (0-0.3); HEMATOCRIT 26.7 % (38.0-50.0); IMMATURE GRANULOCYTE (%) 0.8 % (0.0-0.7); IMMATURE GRANULOCYTE COUNT 0.1 K/uL; INSTRUMENT ABS NEUTROPHIL CT 9.8 K/uL; LYMPHOCYTE COUNT 0.9 K/uL (1.0-2.8); MCHC 29.6 G/DL (30.0-36.0); MCV 98.2 FL (86-99); MEAN PLAT.VOLUME 11.1 uM^3 (9.0-12.4); MONOCYTE (%) 6.2 % (3-12); MONOCYTE COUNT 0.7 K/uL (0-0.8); NEUTROPHIL (%) 84.2 % (45-76); NEUTROPHIL COUNT 9.8 K/uL (1.8-6.4); PLATELET COUNT 181 K/uL (156-360); RBC DIS.WIDTH-CV 22.2 % (11.8-14.6); RBC DIS.WIDTH-SD 77.8 % (39-53); RED BLOOD COUNT 2.72 M/uL (4.00-5.50); WHITE BLOOD COUNT 11.6 K/uL (4.1-10.2)
[2016-11-18 10:42] LABS: ANION GAP 13 MEQ/L (2-14); CHLORIDE 99 MEQ/L (99-109); GFR ESTIMATE (CALCULATED) 16 mL/min/; GLUCOSE 92 mg/dL (70-99); MAGNESIUM 1.8 mg/dl (1.3-2.7); POTASSIUM 3.6 MEQ/L (3.7-5.4); SAMPLE HEMOLYSIS CHECK 0; SAMPLE ICTERIC CHECK 0; SAMPLE LIPEMIA CHECK 0; SODIUM 141 MEQ/L (136-147); UREA NITROGEN (BUN) 19 mg/dL (9-23)
[2016-11-18 13:00] VITALS: BP 122/56
[2016-11-18 15:45] VITALS: BP 124/60
[2016-11-18 23:44] VITALS: BP 126/70
[2016-11-19 07:26] LABS: ANION GAP 14 MEQ/L (2-14); CHLORIDE 100 MEQ/L (99-109); GLUCOSE 95 mg/dL (70-99); MAGNESIUM 1.9 mg/dl (1.3-2.7); SAMPLE HEMOLYSIS CHECK 1; SAMPLE ICTERIC CHECK 0; SAMPLE LIPEMIA CHECK 0; SODIUM 139 MEQ/L (136-147); UREA NITROGEN (BUN) 26 mg/dL (9-23)
[2016-11-19 07:36] LABS: GFR ESTIMATE (CALCULATED) 12 mL/min/; POTASSIUM 3.8 MEQ/L (3.7-5.4)
[2016-11-19 08:15] LABS: BASOPHIL COUNT 0.1 K/uL (0-0.1); EOSINOPHIL (%) 1.1 % (0-5); EOSINOPHIL COUNT 0.1 K/uL (0-0.3); HEMATOCRIT 27.1 % (38.0-50.0); IMMATURE GRANULOCYTE (%) 0.4 % (0.0-0.7); INSTRUMENT ABS NEUTROPHIL CT 8.4 K/uL; LYMPHOCYTE COUNT 0.8 K/uL (1.0-2.8); MCHC 29.9 G/DL (30.0-36.0); MCV 97.1 FL (86-99); MONOCYTE (%) 5.9 % (3-12); MONOCYTE COUNT 0.6 K/uL (0-0.8); NEUTROPHIL (%) 84.1 % (45-76); NEUTROPHIL COUNT 8.4 K/uL (1.8-6.4); NRBC (%) 0.3 /100 WBC (0-0); RBC DIS.WIDTH-CV 22.1 % (11.8-14.6); RBC DIS.WIDTH-SD 77.7 % (39-53); RED BLOOD COUNT 2.79 M/uL (4.00-5.50)
[2016-11-19 10:00] LABS: MEAN PLAT.VOLUME 11.4 uM^3 (9.0-12.4); PLATELET COUNT 128 K/uL (156-360)
[2016-11-19] MEDS ORDERED: DIFICID200 MG PO (13:29)
[2016-11-19] MEDS ORDERED: MIDODRINE HCL5 MG PO (13:29)
[2016-11-19] MEDS ORDERED: FLORASTOR250 MG PO (13:29)
[2016-11-19] MEDS ORDERED: NEPHRO-VITE,1 TABLET PO (13:29)
[2016-11-19] MEDS ORDERED: FENTANYL1 EAC4 TD (13:29)
[2016-11-19] MEDS ORDERED: ELIQUIS5 MG PO (13:29)
[2016-11-19 17:17] VITALS: BP 145/91
== END 2016-11-19 17:26 | DRG 356 ==
LOC: EME 11:09 → 4WEST 13:46 → 5SOUTH 13:46 → EDOF 13:46 → 5SOUTH 16:07 → 4WEST 11-07 00:47 → 5EAST 11-12 15:57
PROVIDERS: Emergency Medicine; Hospitalist; Internal Medicine; Internal Medicine Gastroenterology; Internal Medicine Nephrology; Obstetrics & Gynecology; Physician Assistant Medical; Student in an Organized Health Care Education/Training Program
DX: A04.7 Enterocolitis due to Clostridium difficile (principal); N18.6 End stage renal disease; G93.41 Metabolic encephalopathy; N17.9 Acute kidney failure, unspecified; R18.8 Other ascites; I13.2 Hypertensive heart and chronic kidney disease with heart failure and with stage 5 chronic kidney disease, or end stage renal disease; E87.1 Hypo-osmolality and hyponatremia; I50.22 Chronic systolic (congestive) heart failure; J98.11 Atelectasis; F05 Delirium due to known physiological condition; E46 Unspecified protein-calorie malnutrition; I12.0 Hypertensive chronic kidney disease with stage 5 chronic kidney disease or end stage renal disease; I82.B12 Acute embolism and thrombosis of left subclavian vein; I82.612 Acute embolism and thrombosis of superficial veins of left upper extremity; R64 Cachexia; I96 Gangrene, not elsewhere classified; N25.81 Secondary hyperparathyroidism of renal origin; L97.811 Non-pressure chronic ulcer of other part of right lower leg limited to breakdown of skin; L97.801 Non-pressure chronic ulcer of other part of unspecified lower leg limited to breakdown of skin; D62 Acute posthemorrhagic anemia; K92.1 Melena; I25.5 Ischemic cardiomyopathy; Z51.5 Encounter for palliative care; Z66 Do not resuscitate; I25.10 Atherosclerotic heart disease of native coronary artery without angina pectoris; G54.6 Phantom limb syndrome with pain; D69.6 Thrombocytopenia, unspecified; L89.510 Pressure ulcer of right ankle, unstageable; E87.6 Hypokalemia; E11.22 Type 2 diabetes mellitus with diabetic chronic kidney disease; D63.1 Anemia in chronic kidney disease; J44.9 Chronic obstructive pulmonary disease, unspecified; E11.40 Type 2 diabetes mellitus with diabetic neuropathy, unspecified; L89.310 Pressure ulcer of right buttock, unstageable; L89.150 Pressure ulcer of sacral region, unstageable; E83.111 Hemochromatosis due to repeated red blood cell transfusions; L89.320 Pressure ulcer of left buttock, unstageable; I95.1 Orthostatic hypotension; E78.5 Hyperlipidemia, unspecified; I83.008 Varicose veins of unspecified lower extremity with ulcer other part of lower leg; I87.2 Venous insufficiency (chronic) (peripheral); I87.8 Other specified disorders of veins; L22 Diaper dermatitis; E83.39 Other disorders of phosphorus metabolism; G89.29 Other chronic pain; Z89.612 Acquired absence of left leg above knee; Z99.2 Dependence on renal dialysis; Z68.23 Body mass index [BMI] 23.0-23.9, adult; Z95.5 Presence of coronary angioplasty implant and graft; Z89.411 Acquired absence of right great toe; Z89.421 Acquired absence of other right toe(s); Z95.810 Presence of automatic (implantable) cardiac defibrillator; Z83.3 Family history of diabetes mellitus
CPT/HCPCS: 36600; 36620; 70450; 71010; 71250; 73502; 73630; 74022; 74176; 80048; 80048 91; 80053; 80069; 80076; 81256 90; 82140; 82306; 82330; 82803; 82948; 83540; 83605; 83630; 83690; 83735; 83880; 83970; 84100; 84157; 84443; 84466; 85014; 85018; 85025; 85027; 85610; 85730; 86850; 86900; 86901; 86920; 87040; 87070; 87075; 87205; 87340; 87493; 87641; 93970; 93971; 94640; 94640 76; 94760; 94799; 97530 GP; 99202; 99281; 99285; A6212; C9113; J0881; J1644; J1756; J2270; J2405; J3475; J3480; J7030; J7042; J7120; P9016; P9045; P9047; S0030